=== PATIENT | female | born 1990 | race African-American/Black ===

== ENCOUNTER 2021-05-25 16:05 | Emergency (ER) | payer OTHER ==
[2021-05-25 20:10] LABS: BASOPHIL 0.3 % (0-2); EOSINOPHIL 1.7 % (0-5); HCT 28.4 % (37.0-47.0); HGB 8.9 g/dl (12.5-16.0); LYMPHOCYTE 19.5 % (15-48); MCH 28.6 pg (25.0-31.0); MCHC 31.3 g/dL (32.0-36.0); MCV 91.3 fL (78.0-100.0); MONOCYTE 6.7 % (0-12); MPV 12.8 fL (6.0-9.5); NEUTROPHIL 70.8 % (41-80); NRBC 0; PLT 160 K/uL (150-400); RBC 3.11 M/uL (4.20-5.40); RDW 14.8 % (11.5-14.0); WBC 9.8 K/uL (4.0-10.5)
[2021-05-25 20:26] LABS: ALBUMIN 2.6 g/dL (3.4-5.0); BILIRUBIN - TOTAL 0.2 mg/dL (0.2-1.0); BUN/CREAT RATIO (CALC) 13.6 RATIO; CREATININE 0.81 mg/dL (0.51-0.95); GLOBULIN (CALCULATION) 4.3 g/dL; POTASSIUM 4.5 mmol/L (3.5-5.1); TOTAL PROTEIN 6.9 g/dL (6.4-8.2)
[2021-05-25 21:31] LABS: BILIRUBIN NEGATIVE (NEGATIVE); BLOOD TRACE-INTACT Ery/uL (NEGATIVE); CLARITY CLEAR (CLEAR); COLOR YELLOW (YELLOW); GLUCOSE (U) NORMAL (NORMAL); LEUKOCYTES NEGATIVE Leu/uL (NEGATIVE); NITRITE NEGATIVE (NEGATIVE); PROTEIN NEGATIVE (NEGATIVE); SPECIFIC GRAVITY 1.015 (1.001-1.030); UROBILINOGEN 0.2 mg/dL (0.2-1.0)
[2021-05-25 21:37] LABS: TRANSITIONAL EPITHELIAL CELLS RARE
[2021-05-25 21:38] LABS: SQUAMOUS EPITHELIAL CELLS RARE
== END 2021-05-25 22:16 | disposition home or self-care (01) ==
LOC: FER 16:05
PROVIDERS: Emergency Medicine
DX: O12.05 Gestational edema, complicating the puerperium (principal)
CPT/HCPCS: 36415; 80053; 81001; 85025; 99283